=== PATIENT | female | born 1955 | race Caucasian/White ===

== ENCOUNTER 2017-03-24 16:45 | Inpatient (IN) | payer OTHER ==
[~2017-03-24] VITALS: Ht 165.1 cm; Wt 59.9 kg
[2017-03-24 19:53] VITALS: BP 154/76
[2017-03-24] MEDS ORDERED: ASPI-482 PO (20:07)
[2017-03-24] MEDS ORDERED: SIMV20TA PO (20:07)
[2017-03-24] MEDS ORDERED: METF500T4 PO (20:07)
[2017-03-24] MEDS ORDERED: LATA2.5D2 EACHEYE (20:07)
[2017-03-24] MEDS ORDERED: ATEN50TA PO (20:07)
[2017-03-24] MEDS ORDERED: TRIA1CAP PO (20:07)
[2017-03-24] MEDS ORDERED: HYDROcodone/APAP 5/325MG 1 TAB TABLET PO PRN (20:45)
[2017-03-24] MEDS ORDERED: ONDANSETRON PF 4 MG/2 ML VIAL. IV PRN (20:45)
[2017-03-24] MEDS ORDERED: hydrALAZINE 20 MG/ML VIAL. IVP PRN (20:45)
[2017-03-24] MEDS ORDERED: LATANOPROST 0.005% OPHTH SOLUTION 2.5ML BOTTLE. OU SCH (21:00)
[2017-03-24 23:30] VITALS: BP 123/71
[2017-03-25 03:35] VITALS: BP 112/71
[2017-03-25 06:36] LABS: BASO % 1 % (0-3); EOS % 1 % (0-3); HEMATOCRIT 41.4 % (36.0-47.0); HEMOGLOBIN 13.9 g/dL (12.0-15.5); LYMPH # 1.9 x10^3/uL (1.0-4.8); LYMPH % 31 % (24-48); MEAN CORPUSCULAR HEMOGLOBIN 30 pg (25-35); MEAN CORPUSCULAR HGB CONC 34 g/dL (31-37); MEAN CORPUSCULAR VOLUME 90 fL (79-100); MONO % 5 % (0-9); NEUT % 62 % (31-73); PLATELET COUNT 195 x10^3/uL (140-400); RED BLOOD COUNT 4.61 x10^6/uL (3.50-5.40); RED CELL DISTRIBUTION WIDTH 13.6 % (11.5-14.5)
[2017-03-25 06:57] LABS: CREATININE 0.7 mg/dL (0.6-1.0); GFR 85.4; POTASSIUM 3.8 mmol/L (3.5-5.1)
[2017-03-25 07:00] VITALS: BP 137/78
--- NOTE | 2017-03-25 07:31 | RAD ---
Carotid ultrasound, 03/24/2017: History: Syncope, possible CVA Duplex evaluation of the carotid arteries in the neck was performed including grayscale, color-flow and spectral Doppler analysis. There is only smooth intimal thickening bilaterally. No significant focal plaque formation is seen. The Doppler data obtained from the bifurcations reveals no significant focal velocity acceleration to suggest a hemodynamically significant carotid stenosis. The peak systolic velocity in the right internal carotid artery is 73 cm/s and on the left is 69 cm/s. Antegrade flow is present in both vertebral arteries in the neck. IMPRESSION: No duplex evidence of a significant carotid stenosis in the neck. Note: Stenosis calculations for CT, MRA and conventional angiography are based upon determination of the distal ICA diameter in accordance with the NASCET methodology. Stenosis calculations for Doppler studies are derived from validated velocity criteria which are known to correlate with NASCET methodology of determining stenosis. .
[2017-03-25] MEDS ORDERED: metFORMIN 500 MG TABLET PO SCH (08:00)
[2017-03-25] MEDS ORDERED: ASPIRIN ENTERIC COATED 81 MG TABLET.DR. PO SCH (09:00)
[2017-03-25] MEDS ORDERED: TRIAMTERENE/HCTZ 37.5/25MG TABLET. PO SCH (09:00)
[2017-03-25] MEDS ORDERED: ATENOLOL 50 MG TABLET. PO SCH (09:00)
[2017-03-25] MEDS ORDERED: SIMVASTATIN 20 MG TABLET PO SCH (09:00)
[2017-03-25] MEDS ORDERED: ACETAMINOPHEN 500 MG TABLET PO PRN (09:45)
[2017-03-25 11:00] VITALS: BP 129/66
--- NOTE | 2017-03-25 11:38 | PDOC2 ---
NEUROLOGY CONSULT Date of Admission Date of Admission DATE: 03/25/17 TIME: 11:34 Reason for Consult Reason for Consult: Vertigo, possible stroke Referring Physician Referring Physician: Dr. Álvarez PCP: Dr. Alvares Source Source: Chart review, Patient History of Present Illness History of Present Illness The patient is a 62-year-old right-handed female who noticed vertigo yesterday morning about 3 AM. This was not positional but was true room-spinning vertigo but unassociated with hearing loss, diplopia, dysphagia, dysarthria, or other focal neurological symptom. She has had occasional tinnitus over the past several years. She got up to try to help her mother will who lives with her, and still had the vertigo so came to the [facility] emergency department. The patient did not respond to meclizine so was transferred here with concern of a stroke. However, the patient today feels fine and has no after effects except she still has occasional disequilibrium when she walks. There is no prior history of stroke, seizure, or head injury. I reviewed the [place]'s records and Dr. Stone did find bilateral TM's bulging with clear effusions. He was concerned that the patient did not respond to meclizine and in fact it made her worse, so the patient was transferred here. Past Medical History Cardiovascular: HTN, Hyperlipidemia ENT: Other (glaucoma) Endocrine: Diabetes Past Surgical History Past Surgical History: Hysterectomy Family History Family History: CAD Social History Social History , no tobacco or alcohol Current Medications Current Medications Current Medications Aspirin (Ecotrin) 81 mg DAILY PO Last administered on 03/25/17 08:44; Start at 09:00 Atenolol (Tenormin) 50 mg DAILY PO Last administered on 03/25/17 08:44; Start 03/25/17 at 09:00 Latanoprost (Xalatan) 1 drop QHS OU Last administered on 03/24/17 22:00; Start 03/24/17 at 21:00 Metformin HCl (Glucophage) 500 mg DAILYWBKFT PO Last administered on 03/25/17 08:44; Start 03/25/17 at 08:00 Simvastatin (Zocor) 20 mg QHS PO Last administered on 03/25/17 08:44; Start at 09:00 Triamterene/HCTZ (Maxzide 37.5/ 25mg) 1 tab DAILY PO Last administered on t 08:43; Start 03/25/17 at 09:00 Ondansetron HCl (Zofran) 4 mg PRN Q6HRS PRN IV NAUSEA/VOMITING; Start 03/24/17 at 20:45 Acetaminophen/ Hydrocodone Bitart (Lortab 5/325) 1 tab PRN Q4HRS PRN PO MILD PAIN; Start 03/24/17 at 20:45 Hydralazine HCl (Apresoline) 10 mg PRN Q4HRS PRN IVP for SBP > 160; Start 03/24 at 20:45 Acetaminophen (Tylenol) 500 mg PRN Q6HRS PRN PO MILD PAIN / TEMP; Start at 09:45 Active Scripts Active Reported Xalatan (Latanoprost) 2.5 Ml Drops 1 Drop EACHEYE QHS Metformin Hcl 500 Mg Tablet 500 Mg PO DAILYWBKFT Dyazide 37.5-25 Capsule (Triamterene/Hydrochlorothiazid) 1 Each Capsule 1 Cap PO DAILY Aspir 81 (Aspirin) 81 Mg Tablet.dr 1 Tab PO DAILY Zocor (Simvastatin) 20 Mg Tablet 1 Tab PO DAILY Atenolol 50 Mg Tablet 1 Tab PO DAILY Allergies Allergies: Coded Allergies: Sulfa (Sulfonamide Antibiotics) (Verified Allergy, Intermediate, 03/25/17) ROS Review of System Patient denies fevers, chills, weight loss, dyspnea, angina, abdominal pain, change in bowels, or dysuria. 14 point review of systems is negative. Physical Exam Physical Examination PHYSICAL EXAMINATION: Vital signs: see above. General appearance is normal and in no acute distress. HEENT: Normocephalic and nontraumatic. Eyes, nose, ears, and throat are unremarkable. I do not see effusions behind the tympanic membranes on either side Neck is supple. No lymphadenopathy. No bruits are heard over the carotid artery. No crepitus. NEUROLOGICAL EXAMINATION: Mental Status Examination: Alert. Oriented to time, place, and person. Answers questions and follows commends. Pupils are equal round and reactive to light and accommodation. Funduscopic exam: No papilledema. Extraocular movements are intact. Visual field exam shows no defect on the direct confrontation. No motor or sensory deficits on the facial exam. Uvula in the midline and the soft palate elevated symmetrically. No deviation of the tongue to any direction. Gross hearing is normal. Shoulder shrug normal. Muscle tone is normal. Muscle strength is 5. Deep tendon reflexes are 2+ all around. Plantar reflex is with flexion response bilaterally. Ixirvv-om-[id number] test performance is accurate. Tandem walk test is accurate. Alternative movements are accurate. Romberg test is negative. Gait is normal. Sensory exam shows no deficits. No cerebellar signs are elicited. Vitals VITALS Vital Signs Date Time Temp Pulse Resp B/P (MAP) Pulse Ox O2 Delivery O2 Flow Rate FiO2 03/25/17 11:00 98.3 58 18 129/66 (87) 99 Room Air 98.3 Labs Labs Laboratory Tests Test 03/25/17 06:00 03/25/17 08:03 White Blood Count 6.0 x10^3/uL (4.0-11.0) Red Blood Count 4.61 x10^6/uL (3.50-5.40) Hemoglobin 13.9 g/dL (12.0-15.5) Hematocrit 41.4 % (36.0-47.0) Mean Corpuscular Volume 90 fL (79-100) Mean Corpuscular Hemoglobin 30 pg (25-35) Mean Corpuscular Hemoglobin Concent 34 g/dL (31-37) Red Cell Distribution Width 13.6 % (11.5-14.5) Platelet Count 195 x10^3/uL (140-400) Neutrophils (%) (Auto) 62 % (31-73) Lymphocytes (%) (Auto) 31 % (24-48) Monocytes (%) (Auto) 5 % (0-9) Eosinophils (%) (Auto) 1 % (0-3) Basophils (%) (Auto) 1 % (0-3) Neutrophils # (Auto) 3.7 x10^3uL (1.8-7.7) Lymphocytes # (Auto) 1.9 x10^3/uL (1.0-4.8) Monocytes # (Auto) 0.3 x10^3/uL (0.0-1.1) Eosinophils # (Auto) 0.1 x10^3/uL (0.0-0.7) Basophils # (Auto) 0.0 x10^3/uL (0.0-0.2) Sodium Level 147 mmol/L (136-145) Potassium Level 3.8 mmol/L (3.5-5.1) Chloride Level 108 mmol/L (98-107) Carbon Dioxide Level 31 mmol/L (21-32) Anion Gap 8 (6-14) Blood Urea Nitrogen 16 mg/dL (7-20) Creatinine 0.7 mg/dL (0.6-1.0) Estimated GFR (Cockcroft-Gault) 85.4 Glucose Level 130 mg/dL (70-99) Calcium Level 9.0 mg/dL (8.5-10.1) Triglycerides Level 118 mg/dL (0-150) Cholesterol Level 175 mg/dL (0-200) LDL Cholesterol, Calculated 92 mg/dL (0-100) VLDL Cholesterol, Calculated 24 mg/dL (0-40) Non-HDL Cholesterol Calculated 116 mg/dL (0-129) HDL Cholesterol 59 mg/dL (40-60) Cholesterol/HDL Ratio 3.0 Glucose (Fingerstick) 126 mg/dL (70-99) Laboratory Tests Test 03/25/17 06:00 03/25/17 08:03 White Blood Count 6.0 x10^3/uL (4.0-11.0) Red Blood Count 4.61 x10^6/uL (3.50-5.40) Hemoglobin 13.9 g/dL (12.0-15.5) Hematocrit 41.4 % (36.0-47.0) Mean Corpuscular Volume 90 fL (79-100) Mean Corpuscular Hemoglobin 30 pg (25-35) Mean Corpuscular Hemoglobin Concent 34 g/dL (31-37) Red Cell Distribution Width 13.6 % (11.5-14.5) Platelet Count 195 x10^3/uL (140-400) Neutrophils (%) (Auto) 62 % (31-73) Lymphocytes (%) (Auto) 31 % (24-48) Monocytes (%) (Auto) 5 % (0-9) Eosinophils (%) (Auto) 1 % (0-3) Basophils (%) (Auto) 1 % (0-3) Neutrophils # (Auto) 3.7 x10^3uL (1.8-7.7) Lymphocytes # (Auto) 1.9 x10^3/uL (1.0-4.8) Monocytes # (Auto) 0.3 x10^3/uL (0.0-1.1) Eosinophils # (Auto) 0.1 x10^3/uL (0.0-0.7) Basophils # (Auto) 0.0 x10^3/uL (0.0-0.2) Sodium Level 147 mmol/L (136-145) Potassium Level 3.8 mmol/L (3.5-5.1) Chloride Level 108 mmol/L (98-107) Carbon Dioxide Level 31 mmol/L (21-32) Anion Gap 8 (6-14) Blood Urea Nitrogen 16 mg/dL (7-20) Creatinine 0.7 mg/dL (0.6-1.0) Estimated GFR (Cockcroft-Gault) 85.4 Glucose Level 130 mg/dL (70-99) Calcium Level 9.0 mg/dL (8.5-10.1) Triglycerides Level 118 mg/dL (0-150) Cholesterol Level 175 mg/dL (0-200) LDL Cholesterol, Calculated 92 mg/dL (0-100) VLDL Cholesterol, Calculated 24 mg/dL (0-40) Non-HDL Cholesterol Calculated 116 mg/dL (0-129) HDL Cholesterol 59 mg/dL (40-60) Cholesterol/HDL Ratio 3.0 Glucose (Fingerstick) 126 mg/dL (70-99) Images Images CT head, [facility], yesterday: Findings: The ventricles and sulci are normal for the patient's age. No mass-effect, intracranial mass, midline shift, hemorrhage or obvious acute infarction is identified. Basilar cisterns are patent. Bone windows demonstrate no significant calvarial abnormality. The visualized paranasal sinuses appear clear. Impression: 1. No acute intracranial process. Assessment/Plan Assessment/Plan Impression: Vestibular neuronitis, I find no evidence of stroke or other central nervous system disease and it looks like her vertigo is nearly resolved. History of tinnitus Effusions bilateral tympanic membranes, but I do not appreciate on my exam Recommendations: Await MRI No need for echocardiogram No need for stroke workup, there is no evidence of a stroke Okay for discharge later today, after MRI Follow-up with him nose and throat physician as an outpatient Follow-up with neurology as needed I educated the patient about the nature of vestibular neuronitis the fact that not everyone responds to meclizine. As it did make her feel worse, I would not retry it. Thank you for letting me help with the patient's care. WILLIAM FERRO MD March 25, 2017 11:38
[2017-03-25] MEDS ORDERED: MECL25TA3 PO (12:37)
--- NOTE | 2017-03-25 12:42 | PDOC3 ---
Discharge Summary Visit Information Date of Admission: March 24, 2017 Date of Discharge: March 25, 2017 Admitting Diagnosis Comment: 1. Dizziness,unsteady gaity - peripheral in nature 2,. Vestibular neuronitis, History of tinnitus 3.Effusions bilateral tympanic membranes, 4. HTN, DM - chronic stable. PLAn: Await mRI, if neg then home COunselled, heavy time 31 mins Appreciate neuro Dw RN, Brief Hospital Course Allergies Allergies Coded Allergies Type Severity Reaction Last Updated Verified Sulfa (Sulfonamide Antibiotics) Allergy Intermediate 03/25/17 Yes Vital Signs Vital Signs Date Time Temp Pulse Resp B/P (MAP) Pulse Ox O2 Delivery O2 Flow Rate FiO2 03/25/17 11:00 98.3 58 18 129/66 (87) 99 Room Air 98.3 Lab Results Laboratory Tests Test 03/25/17 06:00 03/25/17 08:03 03/25/17 11:46 White Blood Count 6.0 x10^3/uL (4.0-11.0) Red Blood Count 4.61 x10^6/uL (3.50-5.40) Hemoglobin 13.9 g/dL (12.0-15.5) Hematocrit 41.4 % (36.0-47.0) Mean Corpuscular Volume 90 fL (79-100) Mean Corpuscular Hemoglobin 30 pg (25-35) Mean Corpuscular Hemoglobin Concent 34 g/dL (31-37) Red Cell Distribution Width 13.6 % (11.5-14.5) Platelet Count 195 x10^3/uL (140-400) Neutrophils (%) (Auto) 62 % (31-73) Lymphocytes (%) (Auto) 31 % (24-48) Monocytes (%) (Auto) 5 % (0-9) Eosinophils (%) (Auto) 1 % (0-3) Basophils (%) (Auto) 1 % (0-3) Neutrophils # (Auto) 3.7 x10^3uL (1.8-7.7) Lymphocytes # (Auto) 1.9 x10^3/uL (1.0-4.8) Monocytes # (Auto) 0.3 x10^3/uL (0.0-1.1) Eosinophils # (Auto) 0.1 x10^3/uL (0.0-0.7) Basophils # (Auto) 0.0 x10^3/uL (0.0-0.2) Sodium Level 147 mmol/L (136-145) Potassium Level 3.8 mmol/L (3.5-5.1) Chloride Level 108 mmol/L (98-107) Carbon Dioxide Level 31 mmol/L (21-32) Anion Gap 8 (6-14) Blood Urea Nitrogen 16 mg/dL (7-20) Creatinine 0.7 mg/dL (0.6-1.0) Estimated GFR (Cockcroft-Gault) 85.4 Glucose Level 130 mg/dL (70-99) Calcium Level 9.0 mg/dL (8.5-10.1) Triglycerides Level 118 mg/dL (0-150) Cholesterol Level 175 mg/dL (0-200) LDL Cholesterol, Calculated 92 mg/dL (0-100) VLDL Cholesterol, Calculated 24 mg/dL (0-40) Non-HDL Cholesterol Calculated 116 mg/dL (0-129) HDL Cholesterol 59 mg/dL (40-60) Cholesterol/HDL Ratio 3.0 Glucose (Fingerstick) 126 mg/dL (70-99) 125 mg/dL (70-99) Laboratory Tests Test 03/25/17 06:00 03/25/17 08:03 03/25/17 11:46 White Blood Count 6.0 x10^3/uL (4.0-11.0) Red Blood Count 4.61 x10^6/uL (3.50-5.40) Hemoglobin 13.9 g/dL (12.0-15.5) Hematocrit 41.4 % (36.0-47.0) Mean Corpuscular Volume 90 fL (79-100) Mean Corpuscular Hemoglobin 30 pg (25-35) Mean Corpuscular Hemoglobin Concent 34 g/dL (31-37) Red Cell Distribution Width 13.6 % (11.5-14.5) Platelet Count 195 x10^3/uL (140-400) Neutrophils (%) (Auto) 62 % (31-73) Lymphocytes (%) (Auto) 31 % (24-48) Monocytes (%) (Auto) 5 % (0-9) Eosinophils (%) (Auto) 1 % (0-3) Basophils (%) (Auto) 1 % (0-3) Neutrophils # (Auto) 3.7 x10^3uL (1.8-7.7) Lymphocytes # (Auto) 1.9 x10^3/uL (1.0-4.8) Monocytes # (Auto) 0.3 x10^3/uL (0.0-1.1) Eosinophils # (Auto) 0.1 x10^3/uL (0.0-0.7) Basophils # (Auto) 0.0 x10^3/uL (0.0-0.2) Sodium Level 147 mmol/L (136-145) Potassium Level 3.8 mmol/L (3.5-5.1) Chloride Level 108 mmol/L (98-107) Carbon Dioxide Level 31 mmol/L (21-32) Anion Gap 8 (6-14) Blood Urea Nitrogen 16 mg/dL (7-20) Creatinine 0.7 mg/dL (0.6-1.0) Estimated GFR (Cockcroft-Gault) 85.4 Glucose Level 130 mg/dL (70-99) Calcium Level 9.0 mg/dL (8.5-10.1) Triglycerides Level 118 mg/dL (0-150) Cholesterol Level 175 mg/dL (0-200) LDL Cholesterol, Calculated 92 mg/dL (0-100) VLDL Cholesterol, Calculated 24 mg/dL (0-40) Non-HDL Cholesterol Calculated 116 mg/dL (0-129) HDL Cholesterol 59 mg/dL (40-60) Cholesterol/HDL Ratio 3.0 Glucose (Fingerstick) 126 mg/dL (70-99) 125 mg/dL (70-99) Brief Hospital Course Ms. Barba is a 62 old [sex] who presented with [ ] 62 y.o pleasant female had acute onset dizziness and unsteady gait, needed to hold on to things, non vertiginous, thought she was going to fall. Went to [place], CT head and labs all ok, no relief with meclizine, dizziness non positional hence transferred here for MRI and neuro eval,. MRI not done, pt still complaining of some lightheadedness, PT /OT pending, VS looks good. If mRI neg, home today - see my assessment above Discharge Information Condition at Discharge: Improved, Stable Disposition/Orders: D/C to Home Scheduled Aspirin (Aspir 81), 1 TAB PO DAILY, (Reported) Atenolol (Atenolol), 1 TAB PO DAILY, (Reported) Latanoprost (Xalatan), 1 DROP EACHEYE QHS, (Reported) Metformin Hcl (Metformin Hcl), 500 MG PO DAILYWBKFT, (Reported) Simvastatin (Zocor), 1 TAB PO DAILY, (Reported) Triamterene/Hydrochlorothiazid (Dyazide 37.5-25 Capsule), 1 CAP PO DAILY, ( Reported) GANESH COLLAZO MD March 25, 2017 12:42
--- NOTE | 2017-03-25 12:42 | PDOC1 ---
History and Physical Date of Admission Date of Admission DATE: 03/25/17 TIME: 12:38 Identification/Chief Complaint Chief Complaint dizziness, unsteady gait Problems: Source Source: Caregiver, Chart review, Patient History of Present Illness History of Present Illness 62 y.o pleasant female had acute onset dizziness and unsteady gait, needed to hold on to things, non vertiginous, thought she was going to fall. Went to [place], CT head and labs all ok, no relief with meclizine, dizziness non positional hence transferred here for MRI and neuro eval,. MRI not done, pt still complaining of some lightheadedness, PT /OT pending, VS looks good. Past Medical History Cardiovascular: HTN, Hyperlipidemia ENT: Other (glaucoma) Endocrine: Diabetes Past Surgical History Past Surgical History: Hysterectomy Family History Family History: Hypertension Social History Smoke: No ALCOHOL: none Drugs: None Current Medications Current Medications Current Medications Aspirin (Ecotrin) 81 mg DAILY PO Last administered on 03/25/17 08:44; Start at 09:00 Atenolol (Tenormin) 50 mg DAILY PO Last administered on 03/25/17 08:44; Start 03/25/17 at 09:00 Latanoprost (Xalatan) 1 drop QHS OU Last administered on 03/24/17 22:00; Start 03/24/17 at 21:00 Metformin HCl (Glucophage) 500 mg DAILYWBKFT PO Last administered on 03/25/17 08:44; Start 03/25/17 at 08:00 Simvastatin (Zocor) 20 mg QHS PO Last administered on 03/25/17 08:44; Start at 09:00 Triamterene/HCTZ (Maxzide 37.5/ 25mg) 1 tab DAILY PO Last administered on 08:43; Start 03/25/17 at 09:00 Ondansetron HCl (Zofran) 4 mg PRN Q6HRS PRN IV NAUSEA/VOMITING; Start 03/24/17 at 20:45 Acetaminophen/ Hydrocodone Bitart (Lortab 5/325) 1 tab PRN Q4HRS PRN PO MILD PAIN; Start 03/24/17 at 20:45 Hydralazine HCl (Apresoline) 10 mg PRN Q4HRS PRN IVP for SBP > 160; Start 03/24 at 20:45 Acetaminophen (Tylenol) 500 mg PRN Q6HRS PRN PO MILD PAIN / TEMP; Start at 09:45 Active Scripts Active Reported Xalatan (Latanoprost) 2.5 Ml Drops 1 Drop EACHEYE QHS Metformin Hcl 500 Mg Tablet 500 Mg PO DAILYWBKFT Dyazide 37.5-25 Capsule (Triamterene/Hydrochlorothiazid) 1 Each Capsule 1 Cap PO DAILY Aspir 81 (Aspirin) 81 Mg Tablet.dr 1 Tab PO DAILY Zocor (Simvastatin) 20 Mg Tablet 1 Tab PO DAILY Atenolol 50 Mg Tablet 1 Tab PO DAILY Allergies Allergies: Coded Allergies: Sulfa (Sulfonamide Antibiotics) (Verified Allergy, Intermediate, 03/25/17) ROS General: No: Chills, Night Sweats, Fatigue, Malaise, Appetite, Other PSYCHOLOGICAL ROS: No: Anxiety, Behavioral Disorder, Concentration difficultie , Decreased libido, Depression, Disorientation, Hallucinations, Hostility, Irritablity, Memory difficulties, Mood Swings, Obsessive thoughts, Physical abuse, Sexual abuse, Sleep disturbances, Suicidal ideation, Other Eyes: No Blurry vision, No Decreased vision, No Double vision, No Dry eyes, No Excessive tearing, No Eye Pain, No Itchy Eyes, No Loss of vision, No Photophobia , No Scotomata, No Uses contacts, No Uses glasses, No Other HEENT: No: Heacaches, Visual Changes, Hearing change, Nasal congestion, Nasal discharge, Oral lesions, Sinus pain, Sore Throat, Epistaxis, Sneezing, Snoring, Tinnitus, Vertigo, Vocal changes, Other ALLERGY AND IMMUNOLOGY: No: Hives, Insect Bite Sensitivity, Itchy/Watery Eyes, Nasal Congestion, Post Nasal Drip, Seasonal Allergies, Other Hematological and Lymphatic: No: Bleeding Problems, Blood Clots, Blood Transfusions, Brusing, Night Sweats, Pallor, Swollen Lymph Nodes, Other ENDOCRINE: No: Breast Changes, Galactorrhea, Hair Pattern Changes, Hot Flashes , Malaise/lethargy, Mood Swings, Palpitations, Polydipsia/polyuria, Skin Changes , Temperature Intolerance, Unexpected Weight Changes, Other Breast: No New/Changing Breast Lumps, No Nipple changes, No Nipple discharge, No Other Respiratory: No: Cough, Hemoptysis, Orthopnea, Pleuritic Pain, Shortness of breath, SOB with excertion, Sputum Changes, Stridor, Tachypnea, Wheezing, Other Gastrointestinal: No Nausea, No Vomiting, No Abdominal Pain, No Diarrhea, No Constipation, No Melena, No Hematochezia, No Other Genitourinary: No Dysuria, No Frequency, No Incontinence, No Hematuria, No Retention, No Discharge, No Urgency, No Pain, No Flank Pain, No Other, No , No , No , No , No , No , No Musculoskeletal: No Gait Disturbance, No Joint Pain, No Joint Stiffness, No Joint Swelling, No Muscle Pain, No Muscular Weakness, No Pain In:, No Swelling In:, No Other Neurological: Yes Dizziness Skin: No Dry Skin, No Eczema, No Hair Changes, No Lumps, No Mole Changes, No Mottling, No Nail Changes, No Pruritus, No Rash, No Skin Lesion Changes, No Other, No Acne Physical Exam General: Alert, Oriented X3, Cooperative, No acute distress HEENT: Atraumatic, PERRLA, EOMI Lungs: Clear to auscultation, Normal air movement Heart: S1S2, RRR, no thrills, no rubs, no gallops, murmurs Cardiovascular: S1, S2 Breasts: Normal Abdomen: Normal bowel sounds, Soft, No tenderness Rectal Exam: not examined PELVIC: Nml ext genitalia Extremities: No clubbing, No cyanosis, No edema, Normal pulses, No tenderness/ swelling Skin: No rashes, No breakdown, No significant lesion Neuro: Normal gait, Normal speech, Strength at 5/5 X4 ext, Normal tone, Sensation intact, Cranial nerves 3-12 NL, Reflexes 2+ Psych/Mental Status: Mental status NL, Mood NL Vitals Vitals Vital Signs Date Time Temp Pulse Resp B/P (MAP) Pulse Ox O2 Delivery O2 Flow Rate FiO2 03/25/17 11:00 98.3 58 18 129/66 (87) 99 Room Air 98.3 Labs Labs Laboratory Tests Test 03/25/17 06:00 03/25/17 08:03 03/25/17 11:46 White Blood Count 6.0 x10^3/uL (4.0-11.0) Red Blood Count 4.61 x10^6/uL (3.50-5.40) Hemoglobin 13.9 g/dL (12.0-15.5) Hematocrit 41.4 % (36.0-47.0) Mean Corpuscular Volume 90 fL (79-100) Mean Corpuscular Hemoglobin 30 pg (25-35) Mean Corpuscular Hemoglobin Concent 34 g/dL (31-37) Red Cell Distribution Width 13.6 % (11.5-14.5) Platelet Count 195 x10^3/uL (140-400) Neutrophils (%) (Auto) 62 % (31-73) Lymphocytes (%) (Auto) 31 % (24-48) Monocytes (%) (Auto) 5 % (0-9) Eosinophils (%) (Auto) 1 % (0-3) Basophils (%) (Auto) 1 % (0-3) Neutrophils # (Auto) 3.7 x10^3uL (1.8-7.7) Lymphocytes # (Auto) 1.9 x10^3/uL (1.0-4.8) Monocytes # (Auto) 0.3 x10^3/uL (0.0-1.1) Eosinophils # (Auto) 0.1 x10^3/uL (0.0-0.7) Basophils # (Auto) 0.0 x10^3/uL (0.0-0.2) Sodium Level 147 mmol/L (136-145) Potassium Level 3.8 mmol/L (3.5-5.1) Chloride Level 108 mmol/L (98-107) Carbon Dioxide Level 31 mmol/L (21-32) Anion Gap 8 (6-14) Blood Urea Nitrogen 16 mg/dL (7-20) Creatinine 0.7 mg/dL (0.6-1.0) Estimated GFR (Cockcroft-Gault) 85.4 Glucose Level 130 mg/dL (70-99) Calcium Level 9.0 mg/dL (8.5-10.1) Triglycerides Level 118 mg/dL (0-150) Cholesterol Level 175 mg/dL (0-200) LDL Cholesterol, Calculated 92 mg/dL (0-100) VLDL Cholesterol, Calculated 24 mg/dL (0-40) Non-HDL Cholesterol Calculated 116 mg/dL (0-129) HDL Cholesterol 59 mg/dL (40-60) Cholesterol/HDL Ratio 3.0 Glucose (Fingerstick) 126 mg/dL (70-99) 125 mg/dL (70-99) Laboratory Tests Test 03/25/17 06:00 03/25/17 08:03 03/25/17 11:46 White Blood Count 6.0 x10^3/uL (4.0-11.0) Red Blood Count 4.61 x10^6/uL (3.50-5.40) Hemoglobin 13.9 g/dL (12.0-15.5) Hematocrit 41.4 % (36.0-47.0) Mean Corpuscular Volume 90 fL (79-100) Mean Corpuscular Hemoglobin 30 pg (25-35) Mean Corpuscular Hemoglobin Concent 34 g/dL (31-37) Red Cell Distribution Width 13.6 % (11.5-14.5) Platelet Count 195 x10^3/uL (140-400) Neutrophils (%) (Auto) 62 % (31-73) Lymphocytes (%) (Auto) 31 % (24-48) Monocytes (%) (Auto) 5 % (0-9) Eosinophils (%) (Auto) 1 % (0-3) Basophils (%) (Auto) 1 % (0-3) Neutrophils # (Auto) 3.7 x10^3uL (1.8-7.7) Lymphocytes # (Auto) 1.9 x10^3/uL (1.0-4.8) Monocytes # (Auto) 0.3 x10^3/uL (0.0-1.1) Eosinophils # (Auto) 0.1 x10^3/uL (0.0-0.7) Basophils # (Auto) 0.0 x10^3/uL (0.0-0.2) Sodium Level 147 mmol/L (136-145) Potassium Level 3.8 mmol/L (3.5-5.1) Chloride Level 108 mmol/L (98-107) Carbon Dioxide Level 31 mmol/L (21-32) Anion Gap 8 (6-14) Blood Urea Nitrogen 16 mg/dL (7-20) Creatinine 0.7 mg/dL (0.6-1.0) Estimated GFR (Cockcroft-Gault) 85.4 Glucose Level 130 mg/dL (70-99) Calcium Level 9.0 mg/dL (8.5-10.1) Triglycerides Level 118 mg/dL (0-150) Cholesterol Level 175 mg/dL (0-200) LDL Cholesterol, Calculated 92 mg/dL (0-100) VLDL Cholesterol, Calculated 24 mg/dL (0-40) Non-HDL Cholesterol Calculated 116 mg/dL (0-129) HDL Cholesterol 59 mg/dL (40-60) Cholesterol/HDL Ratio 3.0 Glucose (Fingerstick) 126 mg/dL (70-99) 125 mg/dL (70-99) VTE Prophylaxis Ordered VTE Prophylaxis Devices: Yes VTE Pharmacological Prophylaxi: Yes Assessment/Plan Assessment/Plan 1. Dizziness,unsteady gaity - peripheral in nature 2,. Vestibular neuronitis, History of tinnitus 3.Effusions bilateral tympanic membranes, 4. HTN, DM - chronic stable. PLAn: Await mRI, if neg then home COunselled, heavy time 31 mins Appreciate neuro Dw RN, GANESH COLLAZO MD March 25, 2017 12:42
[2017-03-25] MEDS ORDERED: GADOBUTROL 7.5 MMOL/7.5 ML VIAL IV ONE (14:00)
[2017-03-25 15:00] VITALS: BP 133/68
--- NOTE | 2017-03-25 16:20 | RAD ---
PROCEDURE MRI of the brain without and with contrast 03/25/2017 HISTORY Dizziness for 1 day. TECHNIQUE Unenhanced T1 weighted sagittal and axial and FLAIR, T2 weighted, gradient echo and diffusion weighted axial images of the brain were obtained. After the intravenous administration of 6 cc of Gadavist, enhanced T1 weighted axial and coronal images of the brain were obtained. FINDINGS There is a mild generalized parenchymal atrophy. Patchy and few small scattered areas of increased signal intensity are seen within the periventricular and subcortical white matter of both cerebral hemispheres on the FLAIR and T2 weighted images consistent with areas of minimal small vessel ischemic disease. No acute parenchymal abnormality is seen. No extra-axial fluid collection is noted. No abnormal area of contrast enhancement is seen. Mild mucosal thickening is seen scattered throughout the paranasal sinuses. Normal flow voids are seen within the major vascular structures surrounding the brain parenchyma. IMPRESSION No acute parenchymal abnormality is seen. Electronically signed by: Hany Paredes MD (March 25, 2017 16:18:57)
== END 2017-03-25 19:40 | disposition home or self-care (01) | DRG 149 ==
LOC: 6 SOUTH 19:21
PROVIDERS: ADMIT Internal Medicine; ATTEND Internal Medicine
DX: H81.20 Vestibular neuronitis, unspecified ear (principal); R26.81 Unsteadiness on feet; E11.41 Type 2 diabetes mellitus with diabetic mononeuropathy; E78.5 Hyperlipidemia, unspecified; H40.9 Unspecified glaucoma; H53.2 Diplopia; H91.90 Unspecified hearing loss, unspecified ear; I10 Essential (primary) hypertension; R13.10 Dysphagia, unspecified; Z82.49 Family history of ischemic heart disease and other diseases of the circulatory system
CPT/HCPCS: 36415; 70553; 80048; 80061; 82947; 85027; 93880; A9585

== ENCOUNTER → 2019-01-19 | Day surgery (SDC) | payer OTHER ==
[~2019-01-19] MED LIST: ASPI-482 PO; ATEN50TA PO; IV RINGERS,LACTATED 1000ML 1,000 ML IV SCH; LATA2.5D2 EACHEYE; LIDOCAINE 1% PF 2 ML VIAL. ONE; LORA10TA68 PO; MECL25TA3 PO; METF500T16 PO; PROPOFOL 40 ML IV ONE; SIMV20TA PO; TRIA1CAP PO
[2019-01-19 10:06] VITALS: BP 116/57
--- NOTE | 2019-01-19 21:56 | CONS ---
DATE OF CONSULTATION: 01/19/2019 REFERRING PHYSICIAN: Coleen Alvares MD HISTORY OF PRESENT ILLNESS: This is a 63-year-old female whose past medical history is significant for diabetes, hypertension, seen for a screening colon exam. Bowels are formed without diarrhea or constipation. Her mother did have colon cancer in her 80s. Weight and appetite are stable. No bleeding was noted. She is otherwise without additional complaints. PAST MEDICAL HISTORY: Diabetes, hypertension. ALLERGIES: SULFA. MEDICATIONS: Include aspirin, atenolol, Claritin, metformin, simvastatin, Dyazide. FAMILY AND SOCIAL HISTORY: She is a social drinker, nonsmoker. Family history is as stated. PAST SURGICAL HISTORY: Hysterectomy. REVIEW OF SYSTEMS: Per records. PHYSICAL EXAMINATION: GENERAL: A well-nourished, well-developed female who is alert, cooperative, in no acute distress. VITAL SIGNS: Temperature 98.7, pulse 57, respirations 20. HEENT: Reveals normocephalic and atraumatic head. Pupils and extraocular muscles are not tested. Sclerae are anicteric. NECK: Supple. LUNGS: Clear. CARDIOVASCULAR: Reveals an S1, S2 without S3, S4 or appreciable murmur. ABDOMEN: Reveals soft abdomen, normal bowel sounds without appreciable hepatosplenomegaly. EXTREMITIES: Reveals no cyanosis, clubbing or edema. IMPRESSION: Colorectal screening is warranted at this time. Risks and benefits of procedure have been discussed, the patient is willing to proceed. Of note, positive family history of colon cancer. VIRGINIA OBRIEN MD DR: JADA/nury JOB#: [id number] / [id number]
== END | disposition home or self-care (01) ==
LOC: SURG 08:19
PROVIDERS: ATTEND Internal Medicine Gastroenterology
DX: Z12.11 Encounter for screening for malignant neoplasm of colon (principal); K64.0 First degree hemorrhoids; I10 Essential (primary) hypertension; E11.9 Type 2 diabetes mellitus without complications; Z88.2 Allergy status to sulfonamides; Z79.84 Long term (current) use of oral hypoglycemic drugs; Z79.899 Other long term (current) drug therapy; Z72.89 Other problems related to lifestyle; Z80.0 Family history of malignant neoplasm of digestive organs
CPT/HCPCS: 45378; J2704